=== PATIENT | female | born 1940 ===

== ENCOUNTER 2019-12-15 11:00 | Inpatient (IN) | payer OTHER ==
[~2019-12-15] VITALS: Ht 149.9 cm; Wt 77.1 kg
[2019-12-15] MEDS ORDERED: TOPROL XL50 M1 PO (15:31)
[2019-12-15] MEDS ORDERED: XANAX0.25 MG PO (15:31)
[2019-12-15] MEDS ORDERED: SINGULAIR5 MG PO (15:31)
[2019-12-21] MEDS ORDERED: ELIQUIS2.5 MG PO (14:55)
[2019-12-21] MEDS ORDERED: PERCOCET 5-3251 EACH PO (14:55)
[2019-12-21] MEDS ORDERED: DUI500 PO (14:55)
== END 2019-12-21 15:12 | DRG 470 ==
LOC: ADM 11:00 → O/R 12-19 06:05 → SURH 12-19 06:05 → ADM 12-19 11:00 → EDSTATUS 12-19 11:00 → SURH 12-19 14:30
PROVIDERS: ADMIT Orthopaedic Surgery; ATTEND Orthopaedic Surgery
PROC: 0MNN0ZZ Release Right Knee Bursa and Ligament, Open Approach (ICD-10-PCS; 2019-12-19)
PROC: 0SRC0JZ Replacement of Right Knee Joint with Synthetic Substitute, Open Approach (ICD-10-PCS; principal; 2019-12-19 14:30)
DX: M17.11 Unilateral primary osteoarthritis, right knee (principal); M80.00XA Age-related osteoporosis with current pathological fracture, unspecified site, initial encounter for fracture; D62 Acute posthemorrhagic anemia; M85.461 Solitary bone cyst, right tibia and fibula; M22.11 Recurrent subluxation of patella, right knee; E66.01 Morbid (severe) obesity due to excess calories; J45.909 Unspecified asthma, uncomplicated